=== PATIENT | male | born 1985 | race African-American/Black ===

== ENCOUNTER → 2023-06-28 | Outpatient (REF) | LOC: M LAB 15:26 | PROVIDERS: ATTEND Nurse Practitioner Adult Health | DX: Z00.00 Encounter for general adult medical examination without abnormal findings (principal) ==

== ENCOUNTER 2023-10-19 09:23 | Emergency (ER) | payer OTHER, BC ==
[~2023-10-19] VITALS: Ht 177.8 cm; Wt 85.9 kg
[~2023-10-19 09:23] MED LIST: RALTEGRAVIR 400 MG TAB (ISENTRESS) PO SCH; TRUVADA 200MG/300MG TABLET PO SCH
[2023-10-19] MEDS ORDERED: EXPOSURE KIT-ADULT 7 DAY SUPPLY PO ONE (09:30)
[2023-10-19] MEDS ORDERED: RALT40TA PO (09:38)
[2023-10-19] MEDS ORDERED: EMTR1TAB16 PO (09:38)
[2023-10-19] MEDS ORDERED: RALTEGRAVIR 400 MG TAB (ISENTRESS) PO ONE (10:00)
[2023-10-19] MEDS ORDERED: TRUVADA 200MG/300MG TABLET PO ONE (10:00)
[2023-10-19 10:03] VITALS: BP 139/96; TEMP 98.2; O2SAT 98
[2023-10-19 10:22] LABS: ALBUMIN 4.6 G/DL (3.2-5.2); ALKALINE PHOSPHATASE 57 U/L (46-116); ALT/SGPT 23 U/L (7.0-40); AST/SGOT 16 U/L (<34); BILIRUBIN,TOTAL 0.8 MG/DL (0.3-1.2); BLOOD UREA NITROGEN 16 MG/DL (9-23); CALCIUM LEVEL 9.4 MG/DL (8.5-10.1); CARBON DIOXIDE LEVEL 28 MMOL/L (20-31); CHLORIDE LEVEL 105 MMOL/L (98-107); CREATININE FOR GFR 0.92 MG/DL (0.70-1.30); GLOMERULAR FILTRATION RATE > 60.0 (>60); GLUCOSE, FASTING 110 MG/DL (60-100); HEPATITIS B SURFACE ANTIBODY POSITIVE (POSITIVE); POTASSIUM SERUM 4.1 MMOL/L (3.5-5.1); SODIUM LEVEL 140 MMOL/L (136-145); TOTAL PROTEIN 7.9 G/DL (5.7-8.2)
[2023-10-19 10:23] LABS: BASO % 0.7 % (0.0-1.0); EOS % 0.7 % (0.0-3.0); HEMATOCRIT 45.3 % (42.0-52.0); HEMOGLOBIN 14.7 g/dl (13.5-17.5); LYMPH # 1.9 10^3/uL (1.5-5.0); LYMPH % 45.5 % (24.0-44.0); MEAN CORPUSCULAR HGB CONC 32.5 g/dl (32.0-36.5); MEAN CORPUSCULAR VOLUME 98.7 fl (80.0-96.0); MONO # 0.4 10^3/uL (0.0-0.8); MONO % 8.3 % (2.0-8.0); NEUTROPHILS # 1.9 10^3/uL (1.5-8.5); NEUTROPHILS % 44.8 % (36.0-66.0); PLATELET COUNT, AUTOMATED 199 10^3/uL (150-450); RED BLOOD COUNT 4.59 10^6/uL (4.30-6.10); WHITE BLOOD COUNT 4.2 10^3/uL (4.0-10.0)
[2023-10-19 10:48] LABS: HIV SCREEN CENTAUR EXPOSED NEGATIVE (NEGATIVE)
[2023-10-19 10:55] LABS: HEPATITIS C VIRUS ABY INDEX 0.04 INDEX (<0.8)
== END 2023-10-19 10:20 | disposition home or self-care (01) ==
LOC: M ED 09:23
DX: Z57.8 Occupational exposure to other risk factors (principal); W27.3XXA Contact with needle (sewing), initial encounter; Y93.F9 Activity, other caregiving; Z88.8 Allergy status to other drugs, medicaments and biological substances